=== PATIENT | female | born 2000 | race Two or more races ===

== ENCOUNTER 2023-09-21 00:37 | Emergency (ER) | payer OTHER, SELFPAY ==
[2023-09-21 00:41] VITALS: BP 113/80; PULSE 72; RESP 14; TEMP 36.6; O2SAT 100
--- NOTE | 2023-09-21 02:51 | ED.GENADULT ---
HPI - General Adult General Chief complaint: Recheck/Abnormal Lab/Rx Stated complaint: bump in mouth Time Seen by Provider: 09/21/23 02:40 History of Present Illness HPI narrative: This is a 23-year-old female presenting with a bump on the inside of her lip. Patient says that she likes to chew the inside of her lip. She has noticed that she has developed a small discoloration in that area. no other complaints. Related Data Allergies Allergy/AdvReac Type Severity Reaction Status Date / Time No Known Allergies Allergy Verified 09/21/23 00:46 Exam Narrative: APPEARANCE: No apparent distress. Head: In the inner surface of her lower left lip she has a small swollen discoloration. No ulceration. No other lesions. EYES: EOMI, NOSE: Atraumatic NECK: Trachea midline RESPIRATORY: No increased rate of breathing CARDIOVASCULAR: RRR, ABDOMINAL: Non-distended MUSCULOSKELETAl: No obvious deformities NEURO: Alert. Moving 4/4 extremities SKIN:: Warm, dry. Normal color PSYCHIATRIC: Normal affect Course Vital Signs Vital signs: Vital Signs Temperature 97.9 F 09/21/23 00:41 Pulse Rate 72 09/21/23 00:41 Respiratory Rate 14 09/21/23 00:41 Blood Pressure 113/80 09/21/23 00:41 Pulse Oximetry 100 09/21/23 00:41 Oxygen Delivery Room Air 09/21/23 00:41 Temperature 97.9 F 09/21/23 00:41 Pulse Rate 72 09/21/23 00:41 Respiratory Rate 14 09/21/23 00:41 Blood Pressure 113/80 09/21/23 00:41 Pulse Oximetry 100 09/21/23 00:41 Oxygen Delivery Room Air 09/21/23 00:41 Medical Decision Making [facility] Narrative Medical decision making narrative: -Course: 23-year-old female presenting with a small lesion inside of her mouth. this is not ulcerated or look like herpes. She says that she tends to chew this area. I recommend she stop chewing her lip. She can follow up with primary care physician for further management if the lesion does not improve when she stops chewing on it -DDX includes but is not limited to: mucosal lesion due to dental trauma, neoplasm, aphthous ulcers, herpes -Social determinants of health: [employer] student, studies mechanical engineering -Shared decision making / Disposition: discharge Vital Signs Vital Signs: Vital Signs Temperature 97.9 F 09/21/23 00:41 Pulse Rate 72 09/21/23 00:41 Respiratory Rate 14 09/21/23 00:41 Blood Pressure 113/80 09/21/23 00:41 Pulse Oximetry 100 09/21/23 00:41 Oxygen Delivery Room Air 09/21/23 00:41 Temperature 97.9 F 09/21/23 00:41 Pulse Rate 72 09/21/23 00:41 Respiratory Rate 14 09/21/23 00:41 Blood Pressure 113/80 09/21/23 00:41 Pulse Oximetry 100 09/21/23 00:41 Oxygen Delivery Room Air 09/21/23 00:41 Discharge Plan Discharge Clinical Impression: Lesion of mouth Patient Disposition: Home, Self-Care Condition: Stable Instructions: Antibiotic Form Additional Instructions: please follow-up with [facility] for further management of the lesion in her mouth. Please stop chewing this area. It does not improve after 1 week follow-up with student health. Follow-up/Referrals: PHYSICIAN,COKE CRANE OPERATOR [Primary Care Provider] -
[2023-09-21 03:14] VITALS: BP 116/83; PULSE 70; RESP 15; O2SAT 99
== END 2023-09-21 03:17 | disposition home or self-care (01) ==
LOC: ANHED 02:58
PROVIDERS: Emergency Provider Emergency Medicine
DX: K13.79 Other lesions of oral mucosa (principal)
CPT/HCPCS: 99281

== ENCOUNTER 2024-08-18 08:17 | Emergency (ER) | payer OTHER, SELFPAY ==
--- NOTE | ~2024-08-18 | XR_ITS ---
EXAMINATION: XR chest 2V DATE: 08/18/2024 09:04 INDICATION: 6 weeks of dry cough TECHNIQUE: frontal and lateral views of the chest were obtained. COMPARISON: None FINDINGS: The lungs are clear with no focal airspace opacities, pulmonary edema, pleural effusion or pneumothor ax. The cardiomediastinal silhouette is normal. Visualized bones and soft tissues are unremarkable. IMPRESSION: 1. No acute cardiopulmonary disease. Reviewed, dictated and finalized at location A. OYEE RELATIONS ADVISOR
[2024-08-18 08:28] VITALS: BP 119/81; PULSE 82; RESP 16; TEMP 36.3; O2SAT 99
--- NOTE | 2024-08-18 08:33 | ED.URI ---
HPI - URI/Sore Throat General Chief Complaint: Upper Respiratory Infection Stated Complaint: Cough Time Seen by Provider: 08/18/24 08:33 Source: patient, RN notes reviewed and old records reviewed Mode of arrival: ambulatory Limitations: no limitations and language barrier (Therapy Assistant utilized) History of Present Illness HPI Narrative: Patient presents with complaints of cough since July 09, 2024. Patient is student at [employer], lives in a dorm. She reports that at onset of illness she intermittently had a fever. States that fever has resolved, but cough has worsened and has gone from being a dry cough to being somewhat productive. She reports tightness and worsening cough with activity. She has been taking Robitussin for her symptoms with minimal relief. She denies any other symptoms at this time Related Data Allergies Allergy/AdvReac Type Severity Reaction Status Date / Time No Known Allergies Allergy Verified 08/18/24 09:12 Review of Systems Review of Systems: All systems reviewed & are unremarkable except as noted in HPI and below Constitutional: Constitutional: Reports no additional constitutional complaints ENT: Reports system reviewed and no additional complaints, except as documented Cardiovascular: Cardiovascular: Reports no additional cardiovascular complaints Respiratory: Respiratory: Reports no additional respiratory complaints, Reports chest congestion, Reports cough, Reports excessive phlegm production and Reports dyspnea on exertion Gastrointestinal: Gastrointestinal: Reports no additional gastrointestinal complaints PMFSH Comments At the time of my signature, I reviewed and agree with the nursing past medical, surgical, social, and family history. There is no relevant family history pertinent to the patient complaint. Exam Const: General: cooperative, no acute distress, alert and awake Orientation/consciousness: oriented to person, oriented to place and oriented to time HENMT: Head: normal to inspection Ears: TM's normal bilaterally Mouth: Yes moist mucous membranes Throat: posterior oropharynx abnormal erythema Resp: Effort & Inspection: normal respiratory effort and able to speak in complete sentences Auscultation: clear to auscultation bilaterally, no crackles, no rales, no rhonchi and no wheezes Cardio: Palpation: normal PMI Rate: regular rate Rhythm: regular rhythm Heart sounds: S1 normal heart sound present and S2 normal heart sound present Neuro: General: oriented to person, oriented to place and oriented to time Cranial nerves: Yes CN's II-XII intact bilaterally Psych: Appearance: grossly normal Thought process: Normal thought process present Insight: Good insight present (Psych) Judgement: Good judgement present (Psych) Course Course Level of Care: Express Care Visit Vital Signs Vital signs: Vital Signs Temperature 97.4 F L 08/18/24 08:28 Pulse Rate 82 08/18/24 08:28 Respiratory Rate 16 08/18/24 08:28 Blood Pressure 119/81 08/18/24 08:28 Pulse Oximetry 99 08/18/24 08:28 Oxygen Delivery Room Air 08/18/24 08:28 Temperature 97.4 F L 08/18/24 08:28 Pulse Rate 82 08/18/24 08:28 Respiratory Rate 16 08/18/24 08:28 Blood Pressure 119/81 08/18/24 08:28 Pulse Oximetry 99 08/18/24 08:28 Oxygen Delivery Room Air 08/18/24 08:28 Reviewed MDM - URI/Sore Throat MDM Narrative Medical decision making narrative: Reassuring physical exam and normal chest x-ray are noted. Given that patient has unknown vaccine status, with being cough outbreak in area of where student resides in dorm, and atypical pneumonia prevalent within the community. Will put on a Zithromax in, bronchodilators. Patient is nontoxic appearing and stable for discharge home. Discharge instructions reviewed with patient, as well as provided in writing per nursing staff. The instructions also include specific and strict return/GO TO THE ER as well as f/u information. All questions have been answered, and the patient deny any further questions with discharge and discharge plan. Some parts of this dictation were generated by voice recognition software and may contain typographical and/or grammatical inaccuracies. Differential Diagnosis Differential diagnosis: Likely upper respiratory infection, croup, viral infection and bronchitis Medical Records Attestation: I reviewed the patient's medical records. Imaging Data Attestation: I personally reviewed and interpreted this imaging study as follows: My impression: negative Radiologist's impression: [facility] [address] [place] [address] XRay Report Signed Patient: Rj Hilliard : 2000 MR#: [id number] Age: 23 Acct:[id number] Loc: [facility] ADM Date: 08/18/24Attending Dr: Ordering Physician: Sarika Orona FNP Date of Service: 08/18/24 Procedure(s): XR chest 2V Accession Number(s): [id number] cc: Sarika Orona FNP; SUPERVISOR MOLD CLEANING AND STORAGE PHYSICIAN~ EXAMINATION: XR chest 2V DATE: 08/18/2024 09:04 INDICATION: 6 weeks of dry cough TECHNIQUE: frontal and lateral views of the chest were obtained. COMPARISON: None FINDINGS: The lungs are clear with no focal airspace opacities, pulmonary edema, pleural effusion or pneumothorax. The cardiomediastinal silhouette is normal. Visualized bones and soft tissues are unremarkable. IMPRESSION: 1. No acute cardiopulmonary disease. Reviewed, dictated and finalized at location A. EHOLD REFRIGERATION MECHANIC Dictated By: Octavio Velasquez MD 08/18/24911 Signed By: <Electronically signed by Octavio Velasquez MD in OV> 08/18/24913 Discharge Plan Discharge Clinical Impression: Atypical pneumonia Patient Disposition: Home, Self-Care Condition: Stable Instructions: Antibiotic Form, Community Acquired Pneumonia (ED) Additional Instructions: Take medication as prescribed. Follow-up with primary care provider. Emergency department for new or worse symptoms Patient Language: Chilean Prescriptions: New azithromycin 250 mg tablet See Rx Instructions .ROUTE .COMPLEX Qty: 6 0RF Rx Instructions: For 250 mg dose pack: take 500 mg today (day 1), then 250 mg for 4 days (days 2-5) albuterol sulfate [Ventolin HFA] 90 mcg/actuation HFA aerosol inhaler 2 puff inhalation QID PRN (Reason: shortness of breath or wheezing) Qty: 8.5 0RF Follow-up/Referrals: PHYSICIAN,SUPERVISOR MOLD CLEANING AND STORAGE [Primary Care Provider] - Time of Disposition:
== END 2024-08-18 09:36 | disposition home or self-care (01) ==
PROVIDERS: Emergency Provider Nurse Practitioner Family
DX: J18.9 Pneumonia, unspecified organism (principal)
CPT/HCPCS: 71046; 99213; G0463